=== PATIENT | male | born 1975 | race Caucasian/White ===

== ENCOUNTER 2017-05-21 10:30 | Emergency (ER) | payer MEDICAID ==
--- NOTE | 2017-05-21 11:09 | ED Physician Chart ---
ED Chief Complaint/HPI - Patient Information Date Seen:: 05/21/17 Time Seen:: 10:50 Chief Complaint:: chest pain History of Present Illness:: Yesterday patient developed mild stinging right-sided chest pain which recurred this morning. Patient noted that his hands were clammy. The pain is mildly pleuritic. Patient's had a recent mild cough. Patient stopped drinking alcohol 5 days ago. Prior to that he was on a three-day binge drinking malt liquor. 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 Allergies:: Allergies Allergy/AdvReac Type Severity Reaction Status Date / Time No Known Allergies Allergy Verified 05/21/17 10:41 Vitals:: Vital Signs - 8 hr 05/21/17 10:37 Temp 97.7 F HR 64 RR 16 BP 121/76 O2 Sat % 99 Historian:: Patient Review:: Nurse's Note Reviewed ED Review of Systems - Review of Systems General/Constitutional: No fever, No chills Skin: No skin lesions Head: No headache Eyes: No loss of vision ENT: No earache Neck: No neck pain, No swelling Cardio Vascular: Chest pain Pulmonary: No SOB GI: No nausea, No vomiting, No diarrhea G/U: No dysuria, No hematuria Musculoskeletal: No bone or joint pain, No back pain, No muscle pain Endocrine: No polyuria, No polydipsia Psychiatric: Anxiety Hematopoietic: No bruising Allergic/Immuno: No urticaria Neurological: No syncope, No focal symptoms ED Past Medical History - Past Medical History Past Medical History: Other (anxiety) Family History: Other (patient is adopted) Social History: Non Smoker, Alcohol Surgical History: None Psychiatricy History: Other (anxiety) Medication: None Family Medical History - Family Member Mother History Unknown: Yes ED Physical Exam - Physical Examination General/Constitutional: Well-developed, well-nourished, Alert, No distress Head: Atraumatic Eyes: Lids, conjuctiva normal, PERRL Skin: Nl inspection, No rash, No skin lesions, No ecchymosis ENMT: External ears, nose nl, TM canals nl Neck: No nuchal rigidity Respiratory: Nl effort/Exclusion, Clear to Auscultation, No Wheeze/Rhonchi/Rales Cardio Vascular: RRR, No murmur, gallop, rubs, NL S1 S2 GI: No tenderness/rebounding/guarding, No organomegaly, No hernia, Normal BS's, Nondistended, No mass/bruits, No McBurney tenderness : No CVA tenderness Extremities: Normal digits & nails Neuro/Psych: No focal deficits Misc: Normal back ED Labs/Radiology/EKG Results - Lab Results Results: Laboratory Results - last 24 hr 05/21/17 11:11 Troponin I < 0.01 L ED Septic Shock - . Is Septic Shock (SBP<90, OR Lactate>4 mmol\L) present?: No - <6hrs of presentation: Vital Signs: Vital Signs - 8 hr 05/21/17 10:37 Temp 97.7 F HR 64 RR 16 BP 121/76 O2 Sat % 99 ED Reassessment (Disposition) - Reassessment Reassessment Condition:: Improved - Diagnosis Diagnosis:: Atypical chest pain - Aftercare/Follow up Instructions Aftercare/Follow-Up Instructions:: Refer to Discharge Instructions - Patient Disposition Discharge/Transfer:: Home Condition at Disposition:: Stable, Improved
== END 2017-05-21 12:45 | disposition home or self-care (01) ==
LOC: ER 10:30
DX: R07.89 Other chest pain (principal)
CPT/HCPCS: 36415-UA; 84484-TC; Z7502

== ENCOUNTER 2018-01-21 10:26 | Emergency (ER) | payer MEDICAID ==
--- NOTE | 2018-01-21 11:24 | ED Physician Chart ---
ED Chief Complaint/HPI - Patient Information Date Seen:: 01/21/18 Time Seen:: 11:10 Chief Complaint:: dizziness History of Present Illness:: Patient's been dizzy for the last few days. He explains the dizziness as a sensation of the environment moving when it really isn't. Patient drank 18 beers and malt liquor last night. Prior to last night he had 5 months of sobriety. Allergies:: Allergies Allergy/AdvReac Type Severity Reaction Status Date / Time No Known Allergies Allergy Verified 05/21/17 10:41 Historian:: Patient Review:: Nurse's Note Reviewed ED Review of Systems - Review of Systems General/Constitutional: No fever, No chills Skin: No skin lesions Head: No headache Eyes: No loss of vision ENT: No earache Neck: No neck pain Cardio Vascular: No chest pain, No palpitations Pulmonary: No SOB GI: No nausea, No vomiting, No diarrhea G/U: No dysuria Musculoskeletal: No bone or joint pain, No back pain, No muscle pain Endocrine: No polyuria Psychiatric: No prior psych history Hematopoietic: No bruising Allergic/Immuno: No urticaria Neurological: No syncope, Dizziness Family Medical History - Family Member Mother History Unknown: Yes ED Labs/Radiology/EKG Results - Lab Results Results: Laboratory Results - last 24 hr 01/21/18 01/21/18 11:25 11:25 WBC 7.5 RBC 5.01 Hgb 14.6 Hct 43.7 MCV 87.4 MCH 29.2 MCHC Differential 33.4 RDW 12.4 Plt Count 260 MPV 7.7 Neutrophils % 80.5 H Lymphocytes % 15.2 L Monocytes % 3.9 Eosinophils % 0.1 Basophils % 0.3 Sodium 139 Potassium 3.7 Chloride 105 Carbon Dioxide 24.4 Anion Gap 13.3 BUN 11 Creatinine 0.9 Est GFR ( Amer) > 60.0 Est GFR (Non-Af Amer) > 60.0 BUN/Creatinine Ratio 12.2 Glucose 102 Calcium 9.6 Magnesium 2.0 ED Assessment - Assessment General Assessment: At 1231 patient reported slight improvement in his dizziness ED Septic Shock - . Is Septic Shock (SBP<90, OR Lactate>4 mmol\L) present?: No ED Reassessment (Disposition) - Reassessment Reassessment Condition:: Improved - Diagnosis Diagnosis:: Benign positional vertigo - Aftercare/Follow up Instructions Medication Prescribed:: Antivert 25 mg #20 to take 1 3 times a day - Patient Disposition Discharge/Transfer:: Home Condition at Disposition:: Stable, Improved
[2018-01-21 11:37] LABS: % BASOPHILS 0.3 % (0.0-2.0); % EOSINOPHILS 0.1 % (0.0-5.0); % LYMPHOCYTES 15.2 % (20.0-50.0); % MONOCYTES 3.9 % (2.0-10.0); % NEUTROPHILS 80.5 % (40.0-80.0); HEMATOCRIT 43.7 % (41.0-60); HEMOGLOBIN 14.6 gm/dL (12-16); LYMPHOCYTE ABSOLUTE 1.1 Th/cmm (1.5-3.0); MEAN CELL VOLUME 87.4 fl (80-99); MEAN CORPUSCULAR HEMOGLOBIN 29.2 pg (26.0-30.0); MEAN CORPUSCULAR HGB CONC 33.4 pg (28.0-36.0); MEAN PLATELET VOLUME 7.7 fl; MONOCYTE ABSOLUTE 0.3 Th/cmm (0.3-1.0); NEUTROPHILE ABSOLUTE 6.1 Th/cmm (1.8-8.0); PLATELET COUNT 260 Th/cmm (150-400); RED BLOOD COUNT 5.01 Mil/cmm (4.30-5.70); RED CELL DISTRIBUTION WIDTH 12.4 % (11.5-20.0); WHITE BLOOD COUNT 7.5 Th/cmm (4.8-10.8)
[2018-01-21 11:54] LABS: ANION GAP 13.3 (7.0-16.0); BUN - UREA NITROGEN 11 mg/dL (7-25); CALCIUM SERUM 9.6 mg/dL (8.6-10.3); CARBON DIOXIDE 24.4 mEq/L (21.0-31.0); CHLORIDE 105 mEq/L (98-107); CREATININE - SERUM 0.9 mg/dL (0.7-1.3); GFR AFRICAN-AMERICAN > 60.0 ml/min (>90); GFR NON AFRICAN-AMERICAN > 60.0 ml/min; GLUCOSE 102 mg/dL (70-105); POTASSIUM SERUM 3.7 mEq/L (3.5-5.1); SODIUM SERUM 139 mEq/L (136-145)
== END 2018-01-21 12:50 | disposition home or self-care (01) ==
LOC: ER 10:26
DX: H81.10 Benign paroxysmal vertigo, unspecified ear (principal)
CPT/HCPCS: 36415-UA; 80048-TC; 83735-TC; 85025-TC; Z7502